=== PATIENT | male | born 1990 | race African-American/Black ===

== ENCOUNTER 2017-04-24 03:31 | Emergency (ER) | payer SELFPAY ==
[2017-04-24] MEDS ORDERED: Sodium Chloride 0.9% 1,000 ML IV ONE (03:53)
[2017-04-24] MEDS ORDERED: Sodium Chloride 0.9% 2,000 ML IV ONE (03:53)
[2017-04-24] MEDS ORDERED: HYDROmorphone 1 mg/mL 1mL Syr IVP STA (03:59)
--- NOTE | 2017-04-24 04:04 | ED Physician Chart ---
Chief Complaint/HPI - Patient Information Date Seen:: 04/24/17 Time Seen:: 03:50 Chief Complaint:: vomiting History of Present Illness:: Patient developed epigastric pain and vomiting 2 hours ago. Vomited about 20 times. No diarrhea. Allergies:: Allergies Allergy/AdvReac Type Severity Reaction Status Date / Time No Known Allergies Allergy Verified 04/24/17 03:55 Vitals:: Vital Signs - 8 hr 04/24/17 03:40 Temp 97.6 F HR 79 RR 19 BP 143/80 O2 Sat % 99 Historian:: Patient Review:: Nurse's Note Reviewed Review of Systems - Review of Systems General/Constitutional: No fever, No chills Skin: No skin lesions Head: No headache Eyes: No loss of vision ENT: No earache Neck: No neck pain Cardio Vascular: No chest pain Pulmonary: No SOB GI: Nausea, Vomiting, Pain G/U: No dysuria Musculoskeletal: No bone or joint pain Endocrine: No polyuria Psychiatric: No prior psych history, No depression Hematopoietic: No bruising Allergic/Immuno: No urticaria Neurological: No syncope Past Medical History - Past Medical History Past Medical History: No significant medical hx, DM Family History: Diabetes Melitus Social History: Non Smoker, No Alcohol, Other (smokes marijuana) Surgical History: None Physical Exam - Physical Examination General/Constitutional: Well-developed, well-nourished, Alert Other Gen/Cons comments:: Vomiting and retching Head: Atraumatic Eyes: Lids, conjuctiva normal, PERRL Skin: Nl inspection, No rash ENMT: External ears, nose nl Neck: No nuchal rigidity Respiratory: Nl effort/Exclusion Other Respiratory comments:: 1.5/4 expiratory wheezing Cardio Vascular: RRR, No murmur, gallop, rubs, NL S1 S2 GI: No organomegaly, No hernia, Normal BS's, Nondistended Other GI comments:: Upper abdominal tenderness maximum in the epigastrium : No CVA tenderness Extremities: Normal digits & nails Neuro/Psych: No focal deficits Misc: Normal back Assessment - Assessment General Assessment: at 0520 felt better; apparently sleeping; no vomiting or retching. ED Septic Shock - . Is Septic Shock (SBP<90, OR Lactate>4 mmol\L) present?: No - <6hrs of presentation: Vital Signs: Vital Signs - 8 hr 04/24/17 03:40 Temp 97.6 F HR 79 RR 19 BP 143/80 O2 Sat % 99 Reassessment (Disposition) - Reassessment Reassessment:: Patient told to drink Half Gatorade Half Water and Bananas and When Better to Drink Some Extra orange juice: all for potassium replacement. Reassessment Condition:: Improved - Diagnosis Diagnosis:: viral syndrome; vomiting; hypokalemia - Aftercare/Follow up Instructions Aftercare/Follow-Up Instructions:: Counseled pt regarding lab results/diagnosis & need follow up Medication Prescribed:: zofran 4 mg ODT #6 Sig 1 Q 4 hr PRN - Patient Disposition Discharge/Transfer:: Home Condition at Disposition:: Stable, Improved
[2017-04-24] MEDS ORDERED: HYDROmorphone 1 mg/mL 1mL Syr ONE (04:06)
[2017-04-24 04:19] LABS: % EOSINOPHILS 2.9 % (0.0-5.0); % LYMPHOCYTES 25.7 % (20.0-50.0); % MONOCYTES 9.2 % (2.0-10.0); % NEUTROPHILS 61.2 % (40.0-80.0); HEMATOCRIT 49.7 % (39.0-49.0); HEMOGLOBIN 16.3 gm/dL (13.2-17.3); MEAN CELL VOLUME 86.2 fl (80-99); MEAN CORPUSCULAR HEMOGLOBIN 28.3 pg (26.0-30.0); MEAN CORPUSCULAR HGB CONC 32.8 pg (28.0-36.0); MEAN PLATELET VOLUME 8.1 fl; NEUTROPHILE ABSOLUTE 7.2 Th/cmm (1.8-8.0); PLATELET COUNT 255 Th/cmm (150-400); RED BLOOD COUNT 5.77 Mil/cmm (4.30-5.70); RED CELL DISTRIBUTION WIDTH 14.6 % (11.5-20.0); WHITE BLOOD COUNT 11.7 Th/cmm (4.8-10.8)
[2017-04-24 04:41] LABS: ANION GAP 11.1 (7.0-16.0); BUN - UREA NITROGEN 15 mg/dL (7-25); BUN/CREATININE RATIO 10.7; CHLORIDE 103 mEq/L (98-107); CREATININE - SERUM 1.4 mg/dL (0.7-1.3); GLUCOSE 118 mg/dL (70-105); MAGNESIUM 2.2 mg/dL (1.9-2.7); POTASSIUM SERUM 3.1 mEq/L (3.5-5.1); SODIUM SERUM 137 mEq/L (136-145)
[2017-04-24] MEDS ORDERED: Potassium Chloride 20 mEq ER Tab PO ONE ×2 (06:29→06:46)
== END 2017-04-24 06:33 | disposition home or self-care (01) ==
LOC: ER 03:31
DX: B34.9 Viral infection, unspecified (principal); E87.6 Hypokalemia; R11.10 Vomiting, unspecified
CPT/HCPCS: 99284; 96374; 96375; 36415; 85025; 83690; 83735; 80048; J2405; J1170; J7030; Z7502